=== PATIENT | male | born 1945 ===

== ENCOUNTER 2017-12-25 08:51 | Inpatient (IN) | payer OTHER ==
[~2017-12-25] VITALS: Ht 160 cm; Wt 57.6 kg
[~2017-12-25 08:51] MED LIST: GABAPENTIN300 MG; GLIMEPIRIDE2 MG; HUMALOG MIX 75/10 ML; JANUMET 50-501 UDTAB; LISINOPRIL5 MG; METFORMIN HCL500 MG; SIMVASTATIN20 MG; VYTORIN 10-20 M1 TAB
== END 2017-12-27 09:16 | disposition home or self-care (01) | DRG 311 ==
LOC: MEDI 08:51 → MEDJ 08:51
PROC: C23GYZZ Positron Emission Tomographic (PET) Imaging of Myocardium using Other Radionuclide (ICD-10-PCS; 2017-12-25)
PROC: 4A12XM4 Monitoring of Cardiac Stress, External Approach (ICD-10-PCS; 2017-12-25)
PROC: 3E033HZ Introduction of Radioactive Substance into Peripheral Vein, Percutaneous Approach (ICD-10-PCS; 2017-12-25)
PROC: 4A12X4Z Monitoring of Cardiac Electrical Activity, External Approach (ICD-10-PCS; 2017-12-25)
PROC: B246ZZZ Ultrasonography of Right and Left Heart (ICD-10-PCS; principal; 2017-12-26)
DX: I20.0 Unstable angina (principal); I10 Essential (primary) hypertension; E11.9 Type 2 diabetes mellitus without complications; G20 Parkinson's disease